=== PATIENT | female | born 1990 | race Two or more races ===

== ENCOUNTER 2017-01-10 22:04 | Emergency (ER) | payer OTHER ==
[~2017-01-10] VITALS: Ht 167.6 cm; Wt 61.7 kg
[2017-01-10] MEDS ORDERED: HYDROMORPHONE 1 MG/1 ML DISP.SYRIN ONE (22:33)
[2017-01-10] MEDS ORDERED: ONDANSETRON 4 MG TAB.RAPDIS ONE (22:33)
--- NOTE | 2017-01-10 22:37 | NUR ---
PT REC'D MEDICATION ORDERED. XRAY IN PROGRESS AT THE BEDSIDE.
--- NOTE | 2017-01-10 22:45 | NUR ---
LT FOOT ELEVATED WITH A PILLOW AND ICE PACK PLACED ON LEFT FOOT/ANKLE
--- NOTE | 2017-01-10 22:45 | NUR ---
Karo sandhu in ED - 01/10/17 at 2302 by MARLENA LT FOOT ELEVATED WITH A PILLOW AND ICE PACK PLACED ON LEFT FOOT/ANKLE
[2017-01-10] MEDS ORDERED: ONDANSETRON 4 MG TAB.RAPDIS SL ONE (23:00)
[2017-01-10] MEDS ORDERED: HYDROMORPHONE 1 MG/1 ML DISP.SYRIN IM ONE (23:00)
--- NOTE | 2017-01-10 23:20 | NUR ---
Crutches dispensed. Pt instructed on proper use of crutches. Patient able to demonstrate correct use of crutches.
--- NOTE | 2017-01-10 23:20 | NUR ---
LT SHORT LEG POSTERIOR ORTHOGLASS SPLINT APPLIED.
--- NOTE | 2017-01-10 23:42 | NUR ---
Patient discharged to home in stable condition. Written and verbal after care instructions given. Patient verbalizes understanding of instruction AND RX. PT WAS INSTRUCTED NOT TO DRIVE. PT'S SISTER IS AT THE BEDSIDE AND IS TAKING PT HOME.
--- NOTE | 2017-01-11 00:10 | NUR ---
PT'S SPLINT IS HARDENED. PT IS OK TO GO HOME.
[2017-01-11 00:39] VITALS: BP 122/78
== END 2017-01-11 00:10 | disposition home or self-care (01) ==
LOC: ER 22:07
DX: S92.352A Displaced fracture of fifth metatarsal bone, left foot, initial encounter for closed fracture (principal); Z88.0 Allergy status to penicillin; W22.8XXA Striking against or struck by other objects, initial encounter; Y93.89 Activity, other specified; Y92.89 Other specified places as the place of occurrence of the external cause; Y99.9 Unspecified external cause status
CPT/HCPCS: 73610-TC; 73630-TC; A4606; J1170; Q0162; Z7610